=== PATIENT | female | born 1995 ===

== ENCOUNTER 2020-12-06 09:44 | Emergency (ER) | payer MEDICAID ==
[2020-12-06 10:04] VITALS: BP 143/102
--- NOTE | 2020-12-06 11:07 | Emergency Department Report ---
ED ENT HPI - General Chief complaint: Earache Stated complaint: PAIN IN BOTH EARS Time Seen by Provider: 12/06/20 11:02 Source: patient Mode of arrival: Ambulatory Limitations: No Limitations - History of Present Illness Initial comments: Patient is a 25-year-old female presents emergency room with complaints of bilateral ear pain that began 3 days ago. She denies anything getting into the ear. Denies any ear drainage. She states her right ear has more discomfort than her left. She denies any bleeding or hearing changes. No fever. Past medical history of hypertension. No allergies to medications. Last menstrual cycle 3 weeks ago. - Related Data Previous Rx's Medication Instructions Recorded Last Taken Type Neomycin/Polymyxin B/Hydrocort 4 drops OT QID 7 Days #1 drops.susp 12/06/20 Unknown Rx [Toqkjmim-Oidrhhljl-Xx Ear Susp] Allergies Allergy/AdvReac Type Severity Reaction Status Date / Time No Known Allergies Allergy Unverified 12/06/20 10:01 ED Dental HPI - General Chief complaint: Earache Stated complaint: PAIN IN BOTH EARS Time Seen by Provider: 12/06/20 11:02 Source: patient Mode of arrival: Ambulatory Limitations: No Limitations - Related Data Previous Rx's Medication Instructions Recorded Last Taken Type Neomycin/Polymyxin B/Hydrocort 4 drops OT QID 7 Days #1 drops.susp 12/06/20 Unknown Rx [Ngzqkdzm-Ohaznponq-Of Ear Susp] Allergies Allergy/AdvReac Type Severity Reaction Status Date / Time No Known Allergies Allergy Unverified 12/06/20 10:01 ED Review of Systems ROS: Stated complaint: PAIN IN BOTH EARS Other details as noted in HPI Comment: All other systems reviewed and negative ED Past Medical Hx - Past Medical History Previous Medical History?: No - Surgical History Past Surgical History?: No - Medications Home Medications: Home Medications Medication Instructions Recorded Confirmed Last Taken Type Neomycin/Polymyxin B/Hydrocort 4 drops OT QID 7 Days #1 drops.susp 12/06/20 Unknown Rx [Cbpbrstp-Hpzubdfpr-Hd Ear Susp] ED Physical Exam - General Limitations: No Limitations General appearance: alert, in no apparent distress - Head Head exam: Present: atraumatic, normocephalic - Eye Eye exam: Present: normal appearance - ENT ENT exam: Present: mucous membranes moist, other (bilateral ear canal erythema with mild scaling, no obvious drainage, normal TMs bilaterally, pain with tug test on the right, no mastoid ttp bilaterally) - Neurological Exam Neurological exam: Present: alert, oriented X3 - Psychiatric Psychiatric exam: Present: normal affect, normal mood - Skin Skin exam: Present: warm, dry, intact ED Course Vital Signs 12/06/20 10:02 Temperature 99.8 F H Pulse Rate 99 H Respiratory 18 Rate Blood Pressure 143/102 [Right] O2 Sat by Pulse 100 Oximetry ED Medical Decision Making - Medical Decision Making Patient is a 25-year-old female presents emergency room with complaints of bilateral ear pain that began 3 days ago. She denies anything getting into the ear. Denies any ear drainage. She states her right ear has more discomfort than her left. She denies any bleeding or hearing changes. No fever. Past medical history of hypertension. No allergies to medications. Last menstrual cycle 3 weeks ago. Vitals are stable. On exam:bilateral ear canal erythema with mild scaling, no obvious drainage, normal TMs bilaterally, pain with tug test on the right, no mastoid ttp bilaterally. Examination appears consistent with otitis externa, right greater than left, no signs of otitis media or mastoiditis at this time. Patient given prescription for medication. Advised patient Please use medication as prescribed. May take Tylenol or ibuprofen as needed for any discomfort. Follow-up with a primary care doctor for ear reche ck. Return to emergency room for new or symptoms. Critical care attestation.: If time is entered above; I have spent that time in minutes in the direct care of this critically ill patient, excluding procedure time. ED Disposition Clinical Impression: Otitis externa Qualifiers: Otitis externa type: unspecified type Chronicity: acute Laterality: bilateral Qualified Code(s): H60.503 - Unspecified acute noninfective otitis externa, bilateral Disposition: DC-01 TO HOME OR SELFCARE Is pt being admited?: No Does the pt Need Aspirin: No Condition: Stable Instructions: Otitis Externa, [id number]-hr-[id number] Additional Instructions: Please use medication as prescribed. May take Tylenol or ibuprofen as needed for any discomfort. Follow-up with a primary care doctor for ear recheck. Return to emergency room for new or symptoms. Prescriptions: Neomycin/Polymyxin B/Hydrocort [Qokipvga-Kdxufsimv-Sl Ear Susp] 4 drops OT QID 7 Days #1 drops.susp Referrals: JAMIE RODRIGUEZ MD [Staff Physician] - 2-3 Days [facility] [Provider Group] - 2-3 Days Time of Disposition: 11:06 Print Language: INDONESIAN
== END 2020-12-06 11:15 | disposition home or self-care (01) ==
LOC: ED 09:44
DX: H60.93 Unspecified otitis externa, bilateral (principal); Z79.899 Other long term (current) drug therapy
CPT/HCPCS: 99281